=== PATIENT | male | born 1955 | race Caucasian/White ===

== ENCOUNTER 2020-05-05 17:26 | Emergency (ER) | payer MEDICAID ==
[~2020-05-05] VITALS: Ht 177.8 cm; Wt 109.1 kg
[2020-05-05 17:33] VITALS: BP 141/84
[2020-05-05] MEDS ORDERED: MUPI22OI30 TP (19:31)
[2020-05-05] MEDS ORDERED: PERM60CR19 TOP (19:31)
== END 2020-05-05 19:35 | disposition home or self-care (01) ==
LOC: ER 17:27
DX: L08.89 Other specified local infections of the skin and subcutaneous tissue (principal); Z88.8 Allergy status to other drugs, medicaments and biological substances
CPT/HCPCS: 99283